=== PATIENT | male | born 1965 | race Caucasian/White ===

== ENCOUNTER 2018-02-28 01:15 | Inpatient (IN) ==
[2018-02-28 01:30] LABS: Baso % (Auto) 0.4 % (0.0-2.0); Eos # (Auto) 0.2 th/mm3 (0.0-0.4); Eos % (Auto) 2.6 % (0.0-4.0); Hematocrit 46.2 % (39.0-51.0); Hemoglobin 16.2 gm/dL (13.0-17.0); Lymph # (Auto) 3.5 th/mm3 (1.0-4.8); Mean Corpuscular HGB Conc 35.1 % (32.0-36.0); Mean Corpuscular Hemoglobin 33.3 pg (27.0-34.0); Mean Corpuscular Volume 94.8 fL (80.0-100.0); Mean Platelet Volume 7.2 fL (7.0-11.0); Mono # (Auto) 1.3 th/mm3 (0.0-0.9); Mono % (Auto) 14.1 % (0.0-8.0); Neut # (Auto) 4.1 th/mm3 (1.8-7.7); Neut % (Auto) 44.9 % (16.0-70.0); Platelet Count 186 th/mm3 (150-450); Red Blood Count 4.88 mil/mm3 (4.50-5.90); Red Cell Distribution Width 12.7 % (11.6-17.2); White Blood Count 9.2 th/mm3 (4.0-11.0)
[2018-02-28] MEDS ORDERED: Metoprolol Inj 5 MG/5 ML Vial IV.PUSH ONE (01:45)
[2018-02-28 01:46] LABS: Anion Gap 12 meq/L (5-15); Blood Urea Nitrogen 27 mg/dL (7-18); Calcium 8.5 mg/dL (8.5-10.1); Carbon Dioxide 23.1 meq/L (21.0-32.0); Chloride 106 meq/L (98-107); Glomerular Filtration Rate 47 mL/min (>89); Glucose,Random 108 mg/dL (74-106); Potassium 3.8 meq/L (3.5-5.1); Sodium 141 meq/L (136-145)
[2018-02-28 01:49] LABS: Creatine Kinase 520 U/L (39-308)
[2018-02-28] MEDS ORDERED: Sodium Chlor 0.9% Inj 500 ML IV.SIG SCH (02:00)
[2018-02-28 02:14] LABS: CKMB Percent 0.7 % (0.0-4.0); Creatine Kinase MB 3.4 ng/mL (0.5-3.6)
[2018-02-28] MEDS ORDERED: Heparin 10,000 UNITS/10 ML Vial (for IV use) IV.PUSH STA (02:50)
--- NOTE | 2018-02-28 02:50 | ED ---
HPI General Chief Complaint: Arrhythmia / Palpitations Stated Complaint: Cardiac Time Seen by Provider: 02/28/18 01:16 Source: patient Mode of arrival: ambulatory Limitations: no limitations History of Present Illness HPI narrative: 52-year-old male came to the emergency room with history of palpitations that woke him up from sleep. Patient looked extremely anxious when he arrived. Patient says that he had something very similar 3 weeks back and was in the emergency room. At that time he had had a few drinks of alcohol before coming in. He was diagnosed with A. fib at that time and was discharged home on diltiazem. Patient says that he took 1 dose of diltiazem before going to bed and tube doses 15 minutes prior to coming in once he started feeling the palpitations. Patient was in RVR with heart rate in 150s. Patient says that he did not drink any alcohol tonight. No history of chest pain. Related Data Home Medications Medication Instructions Recorded Confirmed diltiazem HCl [Matzim LA] 180 mg PO DAILY 02/07/18 02/28/18 levothyroxine See Label Instructions .ROUTE 02/07/18 02/28/18 .COMPLEX liothyronine 5 mcg PO DAILY 02/07/18 02/28/18 levothyroxine See Label Instructions .ROUTE 02/28/18 02/28/18 .COMPLEX Allergies Allergy/AdvReac Type Severity Reaction Status Date / Time No Known Allergies Allergy Verified 02/07/18 01:49 Review of Systems ROS: all other systems reviewed are negative [facility] Medical History Medical History Arrhythmia (Acute) Hypothyroid (Acute) Social History Social History Substance History: No History of Abuse Second Hand Smoke Exposure: Yes Smoking Status: Never smoker How Often Do You Have a Drink Containing Alcohol: Monthly or less Recent Travel in [facility] within the Last 8 Weeks: No Recent Out of Country Travel within the Last 8 Weeks: No Immunization History Tetanus Immunization: Unsure Exam Narrative Exam Narrative: GENERAL: Awake, alert, anxious, mild distress SKIN: Focused skin assessment warm/dry. HEAD: Atraumatic. Normocephalic. EYES: Pupils equal and round. No scleral icterus. No injection or drainage. ENT: No nasal bleeding or discharge. Mucous membranes pink and moist. NECK: Trachea midline. No JVD. CARDIOVASCULAR: Irregularly irregular heart rhythm, tachycardia. No murmur appreciated. RESPIRATORY: No accessory muscle use. Clear to auscultation. Breath sounds equal bilaterally. GASTROINTESTINAL: Abdomen soft, non-tender, nondistended. Hepatic and splenic margins not palpable. MUSCULOSKELETAL: No obvious deformities. No clubbing. No cyanosis. No edema. NEUROLOGICAL: Awake and alert. No obvious cranial nerve deficits. Motor grossly within normal limits. Normal speech. PSYCHIATRIC: Appropriate mood and affect; insight and judgment normal. Course Initial Documented Vital Signs Temperature 98 F 02/28/18 01:16 Pulse Rate 152 H 02/28/18 01:16 Respiratory Rate 20 02/28/18 01:16 Blood Pressure 175/88 H 02/28/18 01:16 Pulse Oximetry 100 02/28/18 01:16 Last Documented Vital Signs Temperature 98 F 02/28/18 01:16 Pulse Rate 104 H 02/28/18 01:21 Respiratory Rate 20 02/28/18 01:21 Blood Pressure 155/70 H 02/28/18 01:21 Pulse Oximetry 98 02/28/18 02:02 Critical Care Time Critical Care Time: Yes Total Critical Care Time: 45 Attestation: Aggregate critical care time was 45 minutes. Time to perform other separately billable procedures was not included in the critical care time. My time did not include minutes spent treating any other patients simultaneously or on activities that did not directly contribute to the patient's treatment. The services I provided to this patient were to treat and/or prevent clinically significant deterioration that could result in: A. fib with RVR, heparin bolus and drip, Cardizem drip I provided critical care services requiring my management, as noted below: Chart data review, documentation time, medication orders and management, vital sign assessments/reviewing monitor data, ordering and reviewing lab tests, ordering and interpreting/reviewing x-rays and diagnostic studies, care of the patient and discussion of the patient with the admitting physicians. Medical Decision Making MDM Narrative Medical decision making narrative: 2:48 AM patient was given 20 mg of IV Cardizem that did not not slow the heart rate down. I ordered 5 mg of IV Lopressor and 1 mg of IV Ativan. Currently his heart rate is in 100s. Patient is not anticoagulated and have started him on heparin bolus and drip. I will start him on Cardizem drip as well. He will require admission. Patient was given IV Ativan for his anxiety. I discussed with him about his test results as well as the plan. He understands and is in agreement with it. His risk reduction counselor is Dr. Breen Medical Screen Exam Complete: Yes Emergency Medical Condition: Yes Lab Data Result diagrams: 02/28/18 01:25 02/28/18 01:25 Lab Results 02/28/18 02/28/18 02/28/18 Range/Units 01:25 01:25 01:25 WBC 9.2 (4.0-11.0) th/mm3 RBC 4.88 (4.50-5.90) mil/mm3 Hgb 16.2 (13.0-17.0) gm/dL Hct 46.2 (39.0-51.0) % MCV 94.8 (80.0-100.0) fL MCH 33.3 (27.0-34.0) pg MCHC 35.1 (32.0-36.0) % RDW 12.7 (11.6-17.2) % Plt Count 186 (150-450) th/mm3 MPV 7.2 (7.0-11.0) fL Neut % (Auto) 44.9 (16.0-70.0) % Lymph % (Auto) 38.0 (9.0-44.0) % [place] % (Auto) 14.1 H (0.0-8.0) % Eos % (Auto) 2.6 (0.0-4.0) % Baso % (Auto) 0.4 (0.0-2.0) % Neut # (Auto) 4.1 (1.8-7.7) th/mm3 Lymph # (Auto) 3.5 (1.0-4.8) th/mm3 [place] # (Auto) 1.3 H (0.0-0.9) th/mm3 Eos # (Auto) 0.2 (0.0-0.4) th/mm3 Baso # (Auto) 0.0 (0.0-0.2) th/mm3 WBC Differential . Differential Comment Auto diff final Sodium 141 (136-145) meq/L Potassium 3.8 (3.5-5.1) meq/L Chloride 106 (98-107) meq/L Carbon Dioxide 23.1 (21.0-32.0) meq/L Anion Gap 12 (5-15) meq/L BUN 27 H (7-18) mg/dL Creatinine 1.56 H (0.60-1.30) mg/dL Estimated GFR 47 L (>89) mL/min Random Glucose 108 H (74-106) mg/dL Calcium 8.5 (8.5-10.1) mg/dL Total Creatine Kinase 520 H (39-308) U/L CK-MB (CK-2) 3.4 (0.5-3.6) ng/mL CK-MB (CK-2) % 0.7 (0.0-4.0) % Troponin I Less than 0.02 L (0.02-0.05) ng/mL Serum Alcohol Less than 3 (0-5) mg/dL ECG Data Attestation: I personally reviewed and interpreted this ECG as follows: Interpretation: Twelve-lead EKG was reviewed by me. Calloway. fib, RVR, heart rate of 147 bpm. Discharge Plan Discharge Disposition Patient Disposition: ED Admit(ED Internal Use Only) Physicians Team ED Provider: Melody Gold Rxs /Orders / Referrals /Forms Prescriptions: No Action liothyronine 5 mcg Tablet 5 mcg PO DAILY RF: 0 levothyroxine 150 mcg Capsule 150 mcg PO DAILY RF: 0 diltiazem HCl [Matzim LA] 180 mg Tablet Extended Release 24 Hr 180 mg PO DAILY RF: 0 Discharge Interventions Interventions: Vital Signs Last Done: 02/28/18 01:21 Status ED Status: With Doctor
[2018-02-28] MEDS ORDERED: dilTIAZem Inj 125 MG in Sodium Chlor 0.9% Inj 100 ML IV.CONT PRN (02:58)
[2018-02-28] MEDS ORDERED: Bisacodyl 10 MG Supp RECTAL PRN (03:20)
[2018-02-28] MEDS ORDERED: Acetaminophen 325 MG Tablet PO PRN (03:20)
[2018-02-28 03:38] LABS: Activated Partial Thrombo Time 27.3 sec (23.4-31.7)
--- NOTE | 2018-02-28 04:01 | P.HPIM ---
History of Present Illness Primary Care Physician: Juanjo Turner MD History of Present Illness: This is a 52-year-old male with a PMH of Renal Stone, Hypothyroidism and Tachyarrhythmia who presented to the ER w/ complaints of palpitations which woke him from sleep. Pt follows w/ Dr. Breen as outpatient for h/o Tachyarrhythmia, on Cardizem at home, compliant w/ meds. Seen in ER on for similar episode of palpitations after drinking alcohol, found to be in A- fib w/ RVR, s/p Cardizem in ER w/ improvement, episode thought to be secondary to alcohol and was offered admission, however pt declined w/ plans for outpatient follow up. Pt states he has not been to see Dr. Breen as of yet. On arrival, found to be in A-fib w/ RVR, HR 150's, s/p Cardizem IV, currently on Cardizem/Heparin gtt. No c/o chest pain at this time. No alcohol this evening. BP 175/88, O2 sat 100% on RA, Afebrile. CBC unremarkable. INR 1.0. Creatinine 1.56, previously 1.51 on 02/07/2018. CPK 520. Troponin negative. TSH 0.259/T4 1.45/T3 2.69 on last visit 02/07/18. - Diagnosis (1) Atrial fibrillation with RVR (2) Renal insufficiency (3) Rhabdomyolysis (4) Hypothyroid Inpatient Certification: I certify that the inpatient services were ordered in accordance with Medicare regulations governing the order. This includes certification that hospital inpatient services are reasonable and necessary and in the case of services not specified as inpatient-only under 42 CFR 419.22(n), that they are appropriately provided as inpatient services in accordance to with the 2-midnight benchmark under 43 CFR 412.3(e) Estimated Total Length of Stay (Days): 2 Plans for Post Hospital Care: Not yet determined Review of Systems PAST FAMILY HISTORY: Reviewed. No h/o DM or CAD All other systems reviewed negative except as stated in HPI PMFSH - History History Provided By: Patient - Medical History Medical History: Medical History (Last Reviewed 02/28/18 @ 02:48 by Melody Gold MD) Arrhythmia Hypothyroid - Tobacco History Second Hand Smoke Exposure: Yes Smoking Status: Never smoker - Alcohol History How Often Do You Have a Drink Containing Alcohol: Monthly or less - Substance Use History Substance History: No History of Abuse - Travel History Recent Travel in the [place] Within the Last 8 Weeks: No Recent Travel Out of the Country Within the Last 8 Weeks: No - Immunization History Tetanus Immunization: Unsure Medications and Allergies Active Medications: Active Medications Acetaminophen (Tylenol) 650 mg PO Q4H PRN PRN Reason: Temp > 100.4 Al Hydroxide/Mg Hydroxide (Milk Of Magnesia Liq) 30 ml PO Q12H PRN PRN Reason: Mild Constipation Bisacodyl (Dulcolax Supp) 10 mg RECTAL DAILY PRN PRN Reason: SEVERE CONSITIPATION Heparin Sodium/Dextrose (Heparin/D5w 25,000 U/250 Ml) 25,000 unit in 250 mls @ 0 mls/hr IV.CONT TITRATE PRN; Protocol PRN Reason: Per Protocol Diltiazem HCl 125 mg/ Sodium (Chloride) 125 mls @ 5 mls/hr IV.CONT TITRATE PRN ; Protocol PRN Reason: Per Protocol Sodium Chloride (Ns Inj) 1,000 mls @ 100 mls/hr IV.CONT .Q10H ZULEMA Lactulose (Lactulose Liq) 30 ml PO DAILY PRN PRN Reason: SEVERE CONSITIPATION Ondansetron HCl (Zofran Inj) 4 mg IV.PUSH Q6H PRN PRN Reason: NAUSEA OR VOMITING Senna/Docusate Sodium (Rachel-Colace) 1 tab PO BID ZULEMA Sennosides (Senokot) 17.2 mg PO Q12H PRN PRN Reason: Moderate Constipation Sodium Chloride (Ns Flush) 2 ml IV.FLUSH BID ZULEMA Sodium Chloride (Ns Flush) 2 ml IV.FLUSH PRN PRN PRN Reason: FLUSH AFTER USING IV ACCESS Allergies Allergy/AdvReac Type Severity Reaction Status Date / Time No Known Allergies Allergy Verified 02/07/18 01:49 Home Medications Medication Instructions Recorded Confirmed Type diltiazem HCl [Matzim LA] 180 mg PO DAILY 02/07/18 02/28/18 History levothyroxine See Label Instructions .ROUTE 02/07/18 02/28/18 History .COMPLEX liothyronine 5 mcg PO DAILY 02/07/18 02/28/18 History levothyroxine See Label Instructions .ROUTE 02/28/18 02/28/18 History .COMPLEX Exam Vital signs: Vital Signs 02/28/18 01:16 02/28/18 01:21 02/28/18 02:02 Temperature 98 F Pulse Rate 152 H 104 H Respiratory Rate 20 20 Blood Pressure 175/88 H 155/70 H Pulse Oximetry 100 98 98 Intake & Output 02/27/18 02/27/18 02/28/18 06:59 18:59 06:59 Intake Total 500 / 500 Balance 500 / 500 Weight 115.666 kg Intake: IV 500 / 500 NS Inj 500 ML @ 1000 mls/hr IV. 500 / 500 SIG BOLUS UZLEMA Rx#:[id number] Narrative: PE: GENERAL: Pleasant middle-aged white male in no acute distress. SKIN: Focused skin assessment warm and dry. HEENT: PERRLA, EOMI. No scleral icterus or conjunctival pallor. No lid lag or facial droop. CARDIOVASCULAR: Irregularly irregular, in A. fib, HR 90s. No obvious murmurs to auscultation. No chest tenderness to palpation. RESPIRATORY: No obvious rhonchi or wheezing. Clear to auscultation. Breath sounds equal bilaterally. GASTROINTESTINAL: Abdomen soft, non-tender, nondistended. BS normal. MUSCULOSKELETAL: Extremities without clubbing, cyanosis, or edema. No obvious deformities. NEUROLOGICAL: Awake, alert and oriented x4. No focal neurologic deficits. Moving both upper and lower extremities spontaneously. PSYCHIATRIC: Appropriate mood and affect. Insight and judgment normal. Results - Labs CBC & Chem 7: 02/28/18 01:25 02/28/18 01:25 Labs: Short CBC 02/28/18 Range/Units 01:25 WBC 9.2 (4.0-11.0) th/mm3 Hgb 16.2 (13.0-17.0) gm/dL Hct 46.2 (39.0-51.0) % Plt Count 186 (150-450) th/mm3 BMP 02/28/18 01:25 Sodium 141 Potassium 3.8 Chloride 106 Carbon Dioxide 23.1 BUN 27 H Creatinine 1.56 H Calcium 8.5 Cardiac Enzymes 02/28/18 Range/Units 01:25 Total Creatine Kinase 520 H (39-308) U/L CK-MB (CK-2) 3.4 (0.5-3.6) ng/mL Troponin I Less than 0.02 L (0.02-0.05) ng/mL Caprini VTE Risk Assessment Caprini VTE Risk Assessment: No/Low Risk (score <= 1) Caprini Risk Assessment Model: Point Value = 1 Point Value = 2 Point Value = 3 Point Value = 5 Age 41-60 Minor surgery BMI > 25 kg/m2 Swollen legs Varicose veins or History of unexplained or recurrent spontaneous Oral contraceptives or hormone replacement Sepsis (< 1 month) Serious lung disease, including pneumonia (< 1 month) Abnormal pulmonary function Acute myocardial infarction Congestive heart failure (< 1 month) History of inflammatory bowel disease Medical patient at bed rest Age 61-74 Arthroscopic surgery Major open surgery (> 45 min) Laparoscopic surgery (> 45 min) Malignancy Confined to bed (> 72 hours) Immobilizing plaster cast Central venous access Age >= 75 History of VTE Family history of VTE Factor V Leiden Prothrombin [id number] Lupus anticoagulant Anticardiolipin antibodies Elevated serum homocysteine Heparin-induced thrombocytopenia Other congenital or acquired thrombophilia Stroke (< 1 month) Elective arthroplasty Hip, pelvis, or leg fracture Acute spinal cord injury (< 1 month) Prophylaxis Regimen: Total Risk Factor Score Risk Level Prophylaxis Regimen 0-1 Low Early ambulation 2 Moderate Order ONE of the following: *Sequential Compression Device (SCD) *Heparin 5000 units SQ BID 3-4 Higher Order ONE of the following medications: *Heparin 5000 units SQ TID *Enoxaparin/Lovenox 40 mg SQ daily (WT < 150 kg, CrCl > 30 mL/min) *Enoxaparin/Lovenox 30 mg SQ daily (WT < 150 kg, CrCl > 10-29 mL/min) *Enoxaparin/Lovenox 30 mg SQ BID (WT < 150 kg, CrCl > 30 mL/min) AND/OR *Sequential Compression Device (SCD) 5 or more Highest Order ONE of the following medications: *Heparin 5000 units SQ TID (Preferred with Epidurals) *Enoxaparin/Lovenox 40 mg SQ daily (WT < 150 kg, CrCl > 30 mL/min) *Enoxaparin/Lovenox 30 mg SQ daily (WT < 150 kg, CrCl > 10-29 mL/min) *Enoxaparin/Lovenox 30 mg SQ BID (WT < 150 kg, CrCl > 30 mL/min) AND *Sequential Compression Device (SCD) Assessment and Plan - Assessment (1) Atrial fibrillation with RVR Code(s): I48.91 - Unspecified atrial fibrillation Status: Acute (2) Renal insufficiency Code(s): N28.9 - Disorder of kidney and ureter, unspecified Status: Acute (3) Rhabdomyolysis Code(s): M62.82 - Rhabdomyolysis Status: Acute (4) Hypothyroid Code(s): E03.9 - Hypothyroidism, unspecified Status: Acute - Plan A/P: 1. A-fib w/ RVR: recurrent, h/o similar presentation 02/07/18 thought to be related to alcohol ingestion, resolved after Cardizem IV, however no alcohol tonight. Currently on Cardizem/Heparin gtt. Will admit to [facility], telemetry, check serial cardiac enzymes to eval for underlying ischemia. Check Echo to eval for valvular abnormality/cardiomyopathy. Follows w/ Dr. Breen, will follow for further eval. 2. Renal Insufficiency: Creatinine 1.56, previously 1.51 on 02/07/18, no other labs for comparison, unclear if acute/chronic, check U/a, UDS, IVF, monitor I/O, repeat labs in am. 3. Rhabdomyolysis: CPK 520, IVF for hydration, check U/a and UDS, repeat CPK for trend. 4. Hypothyroid: TSH low, however T3/T4 normal on last visit, resume home Synthroid. 5. DVT Prophylaxis: Heparin gtt 6. Social work for d/c planning as needed. 7. Case discussed w/ ER physician at length, labs/records/imaging reviewed by me.
[2018-02-28] MEDS: Heparin Drip 25,000 UNIT/250 ML BAG IV.CONT PRN ×2 (04:12→23:46)
[2018-02-28] MEDS: Sod Chloride 0.9% Inj 1,000 ML IV.CONT SCH ×2 (04:20→21:41)
[2018-02-28 05:13] LABS: Amphetamine Screen,Urine Neg (Neg); Barbiturate Screen,Urine Neg (Neg); Cannabinoid Screen,Urine Neg (Neg); Cocaine Screen,Urine Neg (Neg)
[2018-02-28 05:14] LABS: Opiate Screen,Urine Neg (Neg)
[2018-02-28] MEDS: Senna/Docusate Sodium 8.6/50 MG Tablet PO SCH ×2 (08:54→21:42)
[2018-02-28 09:57] LABS: Chol/HDL Ratio 3.41 Ratio; Creatine Kinase 369 U/L (39-308); HDL Cholesterol 53.6 mg/dL (40.0-60.0); Troponin I 0.02 ng/mL (0.02-0.05)
--- NOTE | 2018-02-28 10:03 | ECG ---
Date Performed: 02/28/2018 Time Performed: 01:17:38 PTAGE: 52 years EKG: ATRIAL FIBRILLATION WITH RAPID VENTRICULAR RESPONSE INDETERMINATE AXIS RIGHT BUNDLE BRANCH BLOCK ABNORMAL ECG Compared to PREVIOUS TRACING , atrial fibrillation is new. PREVIOUS TRACIN02/07/2018 02.50 DOCTOR: Sundar Varela Interpretating Date/Time 02/28/2018 10:02:28
--- NOTE | 2018-02-28 10:03 | ECG ---
Date Performed: 02/28/2018 Time Performed: 01:43:19 PTAGE: 52 years EKG: ATRIAL FIBRILLATION WITH RAPID VENTRICULAR RESPONSE INFERIOR MYOCARDIAL INFARCTION ST DEPRE SSION, CONSIDER SUBENDOCARDIAL INJURY ABNORMAL ECG Compared to PREVIOUS TRACING , the ST segment abnormalities are more pronounced. PREVIOUS TRACIN 02.50 DOCTOR: Sundar Varela Interpretating Date/Time 02/28/2018 10:02:58
[2018-02-28 10:11] LABS: CKMB Percent 0.8 % (0.0-4.0); Creatine Kinase MB 2.8 ng/mL (0.5-3.6)
[2018-02-28 12:15] LABS: Hemoglobin A1c 5.3 % (4.3-6.0)
--- NOTE | 2018-02-28 14:18 | ECHRPT ---
Indication: ATRIAL FIB/FLUTTER CONCLUSIONS Normal left ventricular size. Wall thickness is normal. The left ventricular systolic function is hyperdynamic with an estimated ejection fraction in the ra nge of 65- 70%. The right ventricle is mildly dilated. The right ventricular systoilc function is normal. A secundum atrial septal defect is present Trace mitral valve regurgitation. There is trace tricuspid valve regurgitation. BP: / HR: Rhythm: Sinus MEASUREMENTS (Male / Female) Normal Values Technical Quality:Fair 2D ECHO LV Diastolic Diameter PLAX 4.6 cm 4.2 - 5.9 / 3.9 - 5.3 cm LV Systolic Diameter PLAX 3.1 cm IVS Diastolic Thickness 0.9 cm 0.6 - 1.0 / 0.6 - 0.9 cm LVPW Diastolic Thickness 1.0 cm 0.6 - 1.0 / 0.6 - 0.9 cm LV Relative Wall Thickness 0.4 RV Internal Dim ED PLAX 4.5 cm LVOT Diameter 2.1 cm Aortic Root Diameter 3.4 cm LA Systolic Diameter LX 3.6 cm 3.0 - 4.0 / 2.7 - 3.8 cm M-MODE AV Cusp Separation MM 2.4 cm DOPPLER AV Peak Velocity 145.0 cm/s AV Peak Gradient 8.4 mmHg AV Mean Gradient 4.0 mmHg AV Velocity Time Integral 26.8 cm LVOT Peak Velocity 126.0 cm/s LVOT Peak Gradient 6.4 mmHg LVOT Velocity Time Integral 28.3 cm AV Area Cont Eq vti 3.7 cm AV Area Cont Eq pk 3.0 cm Mitral E Point Velocity 96.7 cm/s Mitral A Point Velocity 43.4 cm/s Mitral E to A Ratio 2.2 LV E' Lateral Velocity 13.4 cm/s Mitral E to LV E' Lateral Ratio 7.2 LV E' Septal Velocity 10.3 cm/s Mitral E to LV E' Septal Ratio 9.4 TR Peak Velocity 188.7 cm/s TR Peak Gradient 14.2 mmHg Right Atrial Pressure 10.0 mmHg Pulmonary Artery Systolic Pressu 24.2 mmHg Right Ventricular Systolic Press 24.2 mmHg PV Peak Velocity 88.7 cm/s PV Peak Gradient 3.1 mmHg FINDINGS LEFT VENTRICLE Normal left ventricular size. Wall thickness is normal. The left ventricular systolic function is hyperdynamic with an estimated ejection fraction in the ra nge of 65- 70%. RIGHT VENTRICLE The right ventricle is mildly dilated. The right ventricular systoilc function is normal. LEFT ATRIUM The left atrial size is normal. RIGHT ATRIUM The right atrial size is normal. ATRIAL SEPTUM A secundum atrial septal defect is present AORTA The aortic root and proximal ascending aorta are not well visualized. MITRAL VALVE Trace mitral valve regurgitation. AORTIC VALVE Trileaflet aortic valve. No aortic valve stenosis or regurgitation. TRICUSPID VALVE There is trace tricuspid valve regurgitation. PULMONARY VALVE No pulmonary valve regurgitation or stenosis. VESSELS The inferior vena cava is normal in size. PERICARDIUM No pericardial effusion. Michael Zaldivar MD, FACC (Electronically Signed) Final Date:28 February 2018 14:17
--- NOTE | 2018-02-28 16:36 | ECG ---
Date Performed: 02/28/2018 Time Performed: 07:56:50 PTAGE: 52 years EKG: Atrial fibrillation with slow ventricular response. Possible inferior infarct - age undeter mined Low QRS voltages in precordial leads Right bundle branch block Compared to previous tracing, ve ntricular rate is no longer fast Abnormal ECG PREVIOUS TRACING : 02/28/2018 01.43 DOCTOR: Sundar Varela Interpretating Date/Time 02/28/2018 16:34:52
--- NOTE | 2018-02-28 17:32 | MB ---
cc: Chuy Rebolledo MD DATE: 02/28/2018 REFERRING PHYSICIAN: Ranjan Dickerson MD CONVOLUTE TUBE WINDER: Miguelito Breen MD PRIMARY CARE PHYSICIAN: Juanjo Turner MD HISTORY OF PRESENT ILLNESS: Allen Mott is a pleasant 52-year-old gentleman with past medical history as noted and listed below. Last night, he was awakened from sleep by severe palpitations. He presented to the emergency room and was noted to be in atrial fibrillation with rapid ventricular rate, heart rate 50 BPM. He was started on IV Cardizem drip. Reports having a similar episode of palpitations several months ago. He did not have any alcohol last night. He spontaneously converted to sinus rhythm. His troponins are negative for ACS. MEDICATIONS PRIOR TO ADMISSION: 1. Diltiazem LA 180 mg daily. 2. Levothyroxine. 3. Liothyronine. ALLERGIES: NO KNOWN DRUG ALLERGIES. PAST MEDICAL HISTORY: As above. He has history of hypothyroidism, palpitations and tachyarrhythmias. SOCIAL HISTORY: He does not smoke. He drinks alcohol socially. No illicit drug use. REVIEW OF SYSTEMS: No recent fever, chills, cough and sputum production. No recent gastrointestinal, genitourinary or neurologic symptoms. FAMILY HISTORY: Not contributory to present illness. PHYSICAL EXAMINATION: VITAL SIGNS: Temperature 98.0, pulse 47, respirations 16, blood pressure 180/53. EYES: Anicteric. PERRLA. No xanthelasma. Slight JVD. NECK: No carotid bruits. LUNGS: Clear to auscultation. HEART: Regular rate and rhythm. Soft, 2/6 systolic murmur at left lower sternal border. ABDOMEN: Soft and nontender. EXTREMITIES: Show no peripheral edema. LABORATORY DATA: Sodium 141, potassium 3.8, BUN 27, creatinine 1.56. Troponins less than 0.02 x 3. Triglycerides 50, total cholesterol 183, LDL 119. WBC 9.2, hemoglobin 16.2, hematocrit 46.2, platelet count is 186,000. ECG: Atrial fibrillation, ventricular rate [address]-T abnormalities. IMPRESSION: 1. Paroxysmal atrial fibrillation. 2. Troponins negative for acute coronary syndrome. 3. Hypothyroidism. PLAN: 1. Okay to discontinue IV Cardizem drip. 2. Restart oral Cardizem 30 mg q.6 hours. 3. Not able to add beta colin due to resting bradycardia. 4. Consider atrial fibrillation ablation. 5. Dr. Breen will return in a.m. MD WILLIAM Simms/[place] , 03:16 PM , 03:26 PM
[2018-02-28] MEDS: dilTIAZem 30 MG Tablet PO SCH (20:06)
[2018-02-28 23:54] LABS: Bilirubin,Urine Negative (Negative); Clarity,Urine Clear (Clear); Color,Urine Yellow (Yellw/Straw); Glucose,Urine (UA) Negative (Negative); Leukocyte Esterase,Urine Negative (Negative); Mucus,Urine Few /lpf (Occasional); Nitrite,Urine Negative (Negative)
[2018-03-01] MEDS: dilTIAZem 30 MG Tablet PO SCH ×2 (02:47→10:57)
[2018-03-01 06:44] LABS: Baso % (Auto) 0.5 % (0.0-2.0); Eos # (Auto) 0.3 th/mm3 (0.0-0.4); Eos % (Auto) 4.6 % (0.0-4.0); Hematocrit 39.5 % (39.0-51.0); Hemoglobin 13.9 gm/dL (13.0-17.0); Lymph % (Auto) 34.7 % (9.0-44.0); Mean Corpuscular HGB Conc 35.1 % (32.0-36.0); Mean Corpuscular Hemoglobin 33.3 pg (27.0-34.0); Mean Platelet Volume 7.2 fL (7.0-11.0); Mono # (Auto) 0.6 th/mm3 (0.0-0.9); Neut # (Auto) 2.8 th/mm3 (1.8-7.7); Neut % (Auto) 49.2 % (16.0-70.0); Platelet Count 144 th/mm3 (150-450); Red Blood Count 4.16 mil/mm3 (4.50-5.90); Red Cell Distribution Width 12.8 % (11.6-17.2); White Blood Count 5.7 th/mm3 (4.0-11.0)
[2018-03-01 07:12] LABS: Alanine Aminotransferase 23 U/L (12-78); Albumin 2.8 g/dL (3.4-5.0); Alkaline Phosphatase 60 U/L (45-117); Anion Gap 6 meq/L (5-15); Aspartate Aminotransferase 18 U/L (15-37); Blood Urea Nitrogen 11 mg/dL (7-18); Calcium 7.7 mg/dL (8.5-10.1); Carbon Dioxide 26.2 meq/L (21.0-32.0); Chloride 113 meq/L (98-107); Glomerular Filtration Rate 72 mL/min (>89); Glucose,Random 100 mg/dL (74-106); Potassium 4.1 meq/L (3.5-5.1); Sodium 145 meq/L (136-145); Total Protein 6.1 g/dL (6.4-8.2)
[2018-03-01] MEDS: Senna/Docusate Sodium 8.6/50 MG Tablet PO SCH (10:57)
[2018-03-01] MEDS ORDERED: Rivaroxaban 20 MG Tablet PO SCH (11:00)
--- NOTE | 2018-03-01 11:05 | P.DS ---
DS: Providers Date of admission: 02/28/18 03:06 Primary care physician: Juanjo Turner MD Consults: 02/28/18 03:20 Consult to Cardiology Routine Consulting Provider: Chuy Rebolledo Does the patient have a Manifold Operator who follows them?: Yes Preferred Hydrography Teacher:: Tray Breen Reason for Consultation: Afib w/ RVR CONSULT FOR AM Notified:: Service Spoke with:: Vianney Date Notified:: 02/28/18 Time Notified:: 03:49 Comments:: Pt is known to Dr. Breen. Dr. Rebolledo is covering Ordering Provider: DEYSI Brief History from admission: This is a 52-year-old male with a PMH of Renal Stone, Hypothyroidism and Tachyarrhythmia who presented to the ER w/ complaints of palpitations which woke him from sleep. Pt follows w/ Dr. Breen as outpatient for h/o Tachyarrhythmia, on Cardizem at home, compliant w/ meds. Seen in ER on for similar episode of palpitations after drinking alcohol, found to be in A- fib w/ RVR, s/p Cardizem in ER w/ improvement, episode thought to be secondary to alcohol and was offered admission, however pt declined w/ plans for outpatient follow up. Pt states he has not been to see Dr. Breen as of yet. On arrival, found to be in A-fib w/ RVR, HR 150's, s/p Cardizem IV, currently on Cardizem/Heparin gtt. No c/o chest pain at this time. No alcohol this evening. BP 175/88, O2 sat 100% on RA, Afebrile. CBC unremarkable. INR 1.0. Creatinine 1.56, previously 1.51 on 02/07/2018. CPK 520. Troponin negative. TSH 0.259/T4 1.45/T3 2.69 on last visit 02/07/18. DS: Diagnosis Discharge Diagnosis (1) Atrial fibrillation with RVR: Status: Acute (2) Renal insufficiency: Status: Acute (3) Rhabdomyolysis: Status: Acute (4) Hypothyroid: Status: Acute DS: Summary 52-year-old male admitted secondary to A. fib with RVR. He has a past history of palpitations. He has been on diltiazem at baseline. Patient had resolution with IV diltiazem administered in the ER. He is now rate controlled. Xarelto has been added as a treatment. Cleared by cardiology for discharge. Patient medically stable for discharge home today. Time Spent with Patient Total time spent providing and/or coordinating discharge services: Quality: VTE Deep Vein Thrombosis/Pulmonary Embolism Present on Admission: No Results Labs on day of discharge: Labs from last 24 hours 03/01/18 03/01/18 03/01/18 05:55 05:50 05:50 WBC 5.7 RBC 4.16 L Hgb 13.9 D Hct 39.5 MCV 95.0 MCH 33.3 MCHC 35.1 RDW 12.8 Plt Count 144 L MPV 7.2 Neut % (Auto) 49.2 Lymph % (Auto) 34.7 [place] % (Auto) 11.0 H Eos % (Auto) 4.6 H Baso % (Auto) 0.5 Neut # (Auto) 2.8 Lymph # (Auto) 2.0 [place] # (Auto) 0.6 Eos # (Auto) 0.3 Baso # (Auto) 0.0 WBC Differential . Differential Comment Auto diff final APTT 66.9 H D Sodium 145 Potassium 4.1 Chloride 113 H Carbon Dioxide 26.2 Anion Gap 6 BUN 11 Creatinine 1.07 Estimated GFR 72 L Random Glucose 100 Hemoglobin A1c Calcium 7.7 L D Total Bilirubin 0.6 AST 18 ALT 23 Alkaline Phosphatase 60 Total Protein 6.1 L Albumin 2.8 L Urine Color Urine Clarity Urine pH Ur Specific [place] Urine Protein Urine Glucose (UA) Urine Ketones Urine Occult Blood Urine Nitrate Urine Bilirubin Urine Urobilinogen Ur Leukocyte Esterase Urine RBC Urine WBC Urine Mucus Micro UA Comment Ur Microscopic Review Urine Culture Comments 02/28/18 02/28/18 02/28/18 23:30 21:13 13:42 WBC RBC Hgb Hct MCV MCH MCHC RDW Plt Count MPV Neut % (Auto) Lymph % (Auto) [place] % (Auto) Eos % (Auto) Baso % (Auto) Neut # (Auto) Lymph # (Auto) [place] # (Auto) Eos # (Auto) Baso # (Auto) WBC Differential Differential Comment APTT 53.2 H D 40.0 H D Sodium Potassium Chloride Carbon Dioxide Anion Gap BUN Creatinine Estimated GFR Random Glucose Hemoglobin A1c Calcium Total Bilirubin AST ALT Alkaline Phosphatase Total Protein Albumin Urine Color Yellow Urine Clarity Clear Urine pH 6.0 Ur Specific [place] 1.020 Urine Protein Negative Urine Glucose (UA) Negative Urine Ketones Negative Urine Occult Blood Negative Urine Nitrate Negative Urine Bilirubin Negative Urine Urobilinogen Less than 2 Ur Leukocyte Esterase Negative Urine RBC 2 Urine WBC 1 Urine Mucus Few H Micro UA Comment Culture not ind Ur Microscopic Review Not Reportable Urine Culture Comments Culture not ind 02/28/18 09:13 WBC RBC Hgb Hct MCV MCH MCHC RDW Plt Count MPV Neut % (Auto) Lymph % (Auto) [place] % (Auto) Eos % (Auto) Baso % (Auto) Neut # (Auto) Lymph # (Auto) [place] # (Auto) Eos # (Auto) Baso # (Auto) WBC Differential Differential Comment APTT Sodium Potassium Chloride Carbon Dioxide Anion Gap BUN Creatinine Estimated GFR Random Glucose Hemoglobin A1c 5.3 Calcium Total Bilirubin AST ALT Alkaline Phosphatase Total Protein Albumin Urine Color Urine Clarity Urine pH Ur Specific [place] Urine Protein Urine Glucose (UA) Urine Ketones Urine Occult Blood Urine Nitrate Urine Bilirubin Urine Urobilinogen Ur Leukocyte Esterase Urine RBC Urine WBC Urine Mucus Micro UA Comment Ur Microscopic Review Urine Culture Comments Discharge Plan Discharge Disposition Patient Disposition: Discharge Home Discharge Condition Condition: Stable Discharge Order Discharge Orders: Discharge Order (Routine); Ordered 03/01/18 Ordered By: aRnjan Dickerson Discharge Details Anticipated Discharge Date: 03/01/18 Physicians Team Primary Care Provider: Juanjo Turner Attending Provider: Ranjan Dickerson Other Providers: Chuy Rebolledo Rxs /Orders / Referrals /Forms Prescriptions: New rivaroxaban [Xarelto] 20 mg Tablet 20 mg PO DAILY Qty: 30 RF: 0 Continue levothyroxine See Label Instructions .ROUTE .COMPLEX RF: 0 liothyronine 5 mcg Tablet 5 mcg PO DAILY RF: 0 levothyroxine 150 mcg Capsule See Label Instructions .ROUTE .COMPLEX RF: 0 diltiazem HCl [Matzim [place]] 180 mg Tablet Extended Release 24 Hr 180 mg PO DAILY RF: 0 Referrals: Tray Breen MD [Family Provider] - See Instructions Juanjo Turner MD [Primary Care Provider] - See Instructions Status ED Status: Left Department
[2018-03-01] MEDS ORDERED: dilTIAZem CD 180 MG Capsule PO ONE (12:00)
[2018-03-01] MEDS ORDERED: Levothyroxine 150 MCG Tablet PO ONE (13:00)
--- NOTE | 2018-03-01 16:08 | P.PNCA ---
Subjective Interval history: Late entry: Seen at 0830 this am. Patient denies any CP, pressure, palpitations, dizziness, edema or SOB. Patient states that he feels very good and ready to go home. Medications and Allergies Allergies Allergy/AdvReac Type Severity Reaction Status Date / Time No Known Allergies Allergy Verified 02/07/18 01:49 Home Medications Medication Instructions Recorded Confirmed Type diltiazem HCl [Matzim LA] 180 mg PO DAILY 02/07/18 02/28/18 History levothyroxine See Label Instructions .ROUTE 02/07/18 02/28/18 History .COMPLEX liothyronine 5 mcg PO DAILY 02/07/18 02/28/18 History levothyroxine See Label Instructions .ROUTE 02/28/18 02/28/18 History .COMPLEX Physical Exam Vital signs: Vital Signs 02/28/18 16:00 02/28/18 17:00 02/28/18 17:32 Temperature 98.2 F Pulse Rate 46 L 50 L Respiratory Rate 18 Blood Pressure 152/63 H Pulse Oximetry 95 95 02/28/18 18:00 02/28/18 19:00 02/28/18 20:00 Temperature 98 F Pulse Rate 48 L 45 L 48 L Respiratory Rate 16 Blood Pressure 117/59 L Pulse Oximetry 95 02/28/18 21:00 02/28/18 22:00 02/28/18 23:00 Temperature Pulse Rate 46 L 46 L 49 L Respiratory Rate Blood Pressure Pulse Oximetry 03/01/18 00:00 03/01/18 01:00 03/01/18 02:00 Temperature Pulse Rate 44 L 46 L 44 L Respiratory Rate 16 Blood Pressure 94/54 L Pulse Oximetry 95 03/01/18 03:00 03/01/18 04:00 03/01/18 05:00 Temperature Pulse Rate 43 L 44 L 48 L Respiratory Rate Blood Pressure Pulse Oximetry 03/01/18 05:26 03/01/18 06:00 03/01/18 08:00 Temperature Pulse Rate 45 L 44 L 50 L Respiratory Rate 16 Blood Pressure 100/55 L Pulse Oximetry 94 L 96 03/01/18 09:00 03/01/18 10:00 03/01/18 11:00 Temperature Pulse Rate 56 L 70 64 Respiratory Rate Blood Pressure Pulse Oximetry 03/01/18 12:00 Temperature Pulse Rate 48 L Respiratory Rate 18 Blood Pressure 132/74 Pulse Oximetry 96 Intake & Output 02/28/18 03/01/18 03/01/18 18:59 06:59 18:59 Intake Total 1740 / 1740 730 / 730 Output Total 1100 / 1100 Balance 1740 / 1740 -370 / -370 Weight 111.8 kg Intake: IV 1000 / 1000 250 / 250 Heparin/D5W 25,000 U/250 mL 25, 250 / 250 000 unit In 250 ml @ Per Protocol IV.CONT TITRATE PRN Rx #:[id number] NS Inj 1,000 ML @ 100 mls/hr IV 1000 / 1000 .CONT .Q10H ZULEMA Rx#:[id number] Oral 740 / 740 480 / 480 Output: Urine 1100 / 1100 Other: # Voids 4 - Constitutional no acute distress - Routine HEENT Exam Head: Present: normocephalic Eye: Present: PERRL ENT: Present: mucous membranes moist - Routine Neck Exam Present: full ROM - Routine Respiratory Exam Present: CTA bilaterally - Routine Cardiovascular Exam Present: S1, S2, bradycardia. Absent: murmur, gallop, rubs - Routine Abdominal Exam Present: normoactive bowel sounds - Routine Extremities Exam Present: full ROM, pulses intact, normal capillary refill. Absent: cyanosis, clubbing, edema - Routine Skin Exam Present: intact - Routine Neurological Exam Present: oriented X3 - Detailed Neurological Exam: Coma Scale Eye Opening: Spontaneous Verbal Response: Oriented Motor Response: Obey commands Bruno Coma Scale Total: 15 - Routine Psychiatric Exam Present: normal affect Results 03/01/18 05:50 03/01/18 05:50 Cardiac Enzymes 02/28/18 02/28/18 02/28/18 Range/Units 01:25 09:13 09:13 AST (15-37) U/L CK-MB (CK-2) 3.4 2.8 (0.5-3.6) ng/mL Troponin I Less than 0.02 L 0.02 Less than 0.02 L (0.02-0.05) ng/mL 03/01/18 Range/Units 05:50 AST 18 (15-37) U/L CK-MB (CK-2) (0.5-3.6) ng/mL Troponin I (0.02-0.05) ng/mL Coagulation 02/28/18 02/28/18 02/28/18 Range/Units 03:11 09:13 10:08 PT 10.0 (9.8-11.6) sec APTT 27.3 159.9 H* D 134.0 H* (23.4-31.7) sec 02/28/18 02/28/18 03/01/18 Range/Units 13:42 21:13 05:55 PT (9.8-11.6) sec APTT 40.0 H D 53.2 H D 66.9 H D (23.4-31.7) sec Lipids 02/28/18 Range/Units 09:13 Triglycerides 50 (42-150) mg/dL Cholesterol 183 (120-200) mg/dL HDL Cholesterol 53.6 (40.0-60.0) mg/dL Cholesterol/HDL Ratio 3.41 Ratio CBC 02/28/18 03/01/18 Range/Units 01:25 05:50 WBC 9.2 5.7 (4.0-11.0) th/mm3 RBC 4.88 4.16 L (4.50-5.90) mil/mm3 Hgb 16.2 13.9 D (13.0-17.0) gm/dL Hct 46.2 39.5 (39.0-51.0) % Plt Count 186 144 L (150-450) th/mm3 Neut # (Auto) 4.1 2.8 (1.8-7.7) th/mm3 Lymph # (Auto) 3.5 2.0 (1.0-4.8) th/mm3 [place] # (Auto) 1.3 H 0.6 (0.0-0.9) th/mm3 Eos # (Auto) 0.2 0.3 (0.0-0.4) th/mm3 Baso # (Auto) 0.0 0.0 (0.0-0.2) th/mm3 Comprehensive Metabolic Panel 02/28/18 03/01/18 Range/Units 01:25 05:50 Sodium 141 145 (136-145) meq/L Potassium 3.8 4.1 (3.5-5.1) meq/L Chloride 106 113 H (98-107) meq/L Carbon Dioxide 23.1 26.2 (21.0-32.0) meq/L BUN 27 H 11 (7-18) mg/dL Creatinine 1.56 H 1.07 (0.60-1.30) mg/dL Calcium 8.5 7.7 L D (8.5-10.1) mg/dL AST 18 (15-37) U/L ALT 23 (12-78) U/L Alkaline Phosphatase 60 (45-117) U/L Total Protein 6.1 L (6.4-8.2) g/dL Albumin 2.8 L (3.4-5.0) g/dL Intake and Output 03/01/18 03/01/18 03/01/18 06:59 14:59 22:59 Intake Total 730 / 730 Output Total 1100 / 1100 Balance -370 / -370 Intake: IV 250 / 250 Heparin/D5W 25,000 U/250 mL 25, 250 / 250 000 unit In 250 ml @ Per Protocol IV.CONT TITRATE PRN Rx #:[id number] Oral 480 / 480 Output: Urine 1100 / 1100 Other: Weight 111.8 kg Assessment and Plan - Assessment (1) Atrial fibrillation with RVR Code(s): I48.91 - Unspecified atrial fibrillation Status: Acute (2) Renal insufficiency Code(s): N28.9 - Disorder of kidney and ureter, unspecified Status: Acute (3) Rhabdomyolysis Code(s): M62.82 - Rhabdomyolysis Status: Acute (4) Hypothyroid Code(s): E03.9 - Hypothyroidism, unspecified Status: Acute - Plan Patient having paroxysmal atrial fibrillation, we will stop the Heparin gtt and place patient on Xarelto 20mg QD for anticoagulation. Patient's HR is no SB on monitor, we will stop Cardizem at this time. 2D echo sow EF of 65-70%, normal LV function. Patient is cleared for discharge from a cardiac standpoint. We will follow up with patient in office in one week. The patient was seen and evaluated by Dr. Breen who participated in care, management and decision making. - Attending Attestation Patient seen and examined. I reviewed and agree with the evaluation and plan as presented. He spontaneously converted to SR. DC heparin, start Xarelto. Continue diltiazem. DC home. Will schedule f/u in our office after discharge.
== END 2018-03-01 13:15 | disposition home or self-care (01) ==
LOC: NEPC 01:15 → NEDA 03:06 → HCIS 04:49
PROVIDERS: ADMIT Hospitalist; ATTEND Hospitalist
DX: I48.0 Paroxysmal atrial fibrillation; E03.9 Hypothyroidism, unspecified; M62.82 Rhabdomyolysis; N28.9 Disorder of kidney and ureter, unspecified